=== PATIENT | male | born 1940 | race American Indian/Alaskan Native ===

== ENCOUNTER 2017-08-23 10:24 | Inpatient (IN) | payer MEDICARE, OTHER ==
[2017-08-23] MEDS ORDERED: Cefepime 1 GM in Sodium Chloride 0.9% 50 ML IVPB STA (10:57)
[2017-08-23] MEDS ORDERED: Vancomycin 1 GM 1 GM/250 ML BAG IV STA (10:57)
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
[2017-08-23 11:29] LABS: BASO % 0.6 % (0.0-2.0); EOS # 0.3 K/uL (0.0-0.7); EOS % 3.3 % (0.0-4.0); HEMATOCRIT 32.8 % (35.0-51.0); LYMPH % 12.7 % (20.0-40.0); MEAN CELL VOLUME 89.1 fL (80.0-94.0); MEAN CORPUSCULAR HEMOGLOBIN 29.3 pg (27.0-31.0); MEAN CORPUSCULAR HGB CONC 32.9 g/dL (33.0-37.0); MEAN PLATELET VOLUME 8.9 fL (7.2-11.7); MONO # 0.5 K/uL (0.0-0.8); MONO % 6.7 % (0.0-10.0); RED CELL DISTRIBUTION WIDTH 15.3 % (11.5-14.5); WHITE BLOOD COUNT 8.1 K/uL (4.8-10.8)
[2017-08-23 11:32] LABS: VENOUS BLOOD GAS BASE EXCESS 10.8 mmol/L (0.0-2.0); VENOUS BLOOD GAS PCO2 58 mmHg (40-60); VENOUS BLOOD PH 7.42 (7.32-7.43)
--- NOTE | 2017-08-23 12:19 | RAD ---
PROCEDURE: Left Foot Radiographs. HISTORY: LEFT HEEL WOUND, R/O GAS, OSTEO COMPARISON: None. FINDINGS: BONES: There is diffuse bone demineralization. There is no acute fracture or bone destruction. Bone alignment is normal. 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 SOFT TISSUES: There is severe soft tissue swelling in the heel with subcutaneous edema. No definite evidence of gas in the soft tissues. OTHER FINDINGS: None. IMPRESSION: No radiographic evidence for osteomyelitis. Soft tissue swelling in the heel with subcutaneous edema most compatible with cellulitis. No radiographic evidence for gas in the soft tissues.
[2017-08-23 12:22] LABS: POTASSIUM 3.9 mmol/L (3.6-5.2)
[2017-08-23 12:24] LABS: ALB/GLOB RATIO 0.8 (1.0-2.1); BILIRUBIN,TOTAL 0.7 mg/dL (0.2-1.3)
[2017-08-23 12:25] LABS: CALCIUM 8.3 mg/dl (8.6-10.4)
[2017-08-23 12:27] LABS: INR 1.2
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
[2017-08-23] MEDS ORDERED: Vancomycin 1 gm/NS 200 ml 1 GM/200 ML BAG IVPB ONE (14:00)
[2017-08-23] MEDS ORDERED: Vancomycin 1 gm/NS 200 ml 1 GM/200 ML BAG IVPB SCH (14:00)
[2017-08-23] MEDS: Piperacill/Tazo 2.25gm in Dex 2.25 GM/50 ML BAG IVPB SCH ×2 (15:20→20:32)
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
--- NOTE | 2017-08-23 20:12 | CP.PCM.CON ---
History of Present Illness - History of Present Illness History of Present Illness: 76 year old male seen for ulcer with suspected OM left heel .Pt presented to my office yesterday with deep heel ulcer left which appears to be chronic . Pt has long history of wounds with treatment by Dr Peterson Mas .Pt has right Leg amputation . Review of Systems - Constitutional Constitutional: As Per HPI - EENT Eyes: As Per HPI Nose/Mouth/Throat: As Per HPI - Cardiovascular Cardiovascular: As Per HPI - Respiratory Respiratory: As Per HPI - Gastrointestinal Gastrointestinal: As Per HPI - Genitourinary Genitourinary: As Per HPI - Musculoskeletal Musculoskeletal: As Per HPI Additional comments: rihght leg amputation - Integumentary Integumentary: As Per HPI - Neurological Neurological: As Per HPI, Abnormal Gait - Psychiatric Psychiatric: As Per HPI - Endocrine Endocrine: As Per HPI Past Patient History - Past Medical History & Family History Past Medical History?: Yes - Past Social History Smoking Status: Never Smoked - RENAL Hx Chronic Kidney Disease: Yes - ENDOCRINE/METABOLIC Hx Diabetes Mellitus Type 2: Yes - MUSCULOSKELETAL/RHEUMATOLOGICAL Hx Falls: No - PSYCHIATRIC Hx Substance Use: No - SURGICAL HISTORY Other/Comment: right above knee amputee - ANESTHESIA Hx Anesthesia: Yes Hx Anesthesia Reactions: No Meds Allergies/Adverse Reactions: Allergies Allergy/AdvReac Type Severity Reaction Status Date / Time No Known Allergies Allergy Verified 08/23/17 10:34 - Medications Medications: Current Medications Enoxaparin Sodium (Lovenox) 30 mg SC DAILY [facility] Ferrous Sulfate (Feosol) 325 mg PO DAILY [facility] Gabapentin (Neurontin) 300 mg PO TID [facility] Last Admin: 08/23/17 18:05 Dose: 300 mg Piperacillin Sod/Tazobactam Sod (Zosyn 2.25 Gm Iv Premix) 2.25 gm in 50 mls @ 100 mls/hr IVPB Q6H [facility] Last Admin: 08/23/17 15:20 Dose: 100 mls/hr Vancomycin/Sodium Chloride (Vancomycin 1 Gm/Ns 200 Ml) 1 gm in 200 mls @ 133.333 mls/hr IVPB MWF [facility] Stop: 08/31/17 09:01 Pantoprazole Sodium (Protonix Ec Tab) 40 mg PO DAILY [facility] Pneumococcal Polyvalent Vaccine (Pneumovax 23 Vaccine) 0.5 ml SC .ONCE ONE Stop: 08/26/17 10:01 Tramadol HCl (Ultram) 50 mg PO Q6 [facility] Last Admin: 08/23/17 18:04 Dose: 50 mg Physical Exam - Extremities Exam Additional comments: O/Deep heel ulcer left with cellulitis . Dp Pt pulses non palpable left . Results - Vital Signs Recent Vital Signs: Last Vital Signs Temp 97.5 F L 08/23/17 16:00 Pulse 85 08/23/17 16:00 Resp 20 08/23/17 16:00 BP 120/51 L 08/23/17 16:00 Pulse Ox 98 08/23/17 17:04 - Labs Result Diagrams: 08/23/17 11:20 08/23/17 12:05 Labs: Laboratory Results - last 24 hr 08/23/17 08/23/17 08/23/17 11:20 11:28 12:05 WBC 8.1 RBC 3.68 L Hgb 10.8 L Hct 32.8 L MCV 89.1 MCH 29.3 MCHC 32.9 L RDW 15.3 H Plt Count 226 MPV 8.9 Neut % (Auto) 76.7 H Lymph % (Auto) 12.7 L [place] % (Auto) 6.7 Eos % (Auto) 3.3 Baso % (Auto) 0.6 Neut # 6.2 Lymph # 1.0 [place] # 0.5 Eos # 0.3 Baso # 0.0 ESR Cancelled PT INR APTT pO2 19 L VBG pH 7.42 VBG pCO2 58 VBG HCO3 31.5 VBG Total CO2 39.4 H VBG O2 Sat (Calc) 29.5 L VBG Base Excess 10.8 H VBG Potassium 3.3 L Sodium 141.0 136 Chloride 106.0 96 L Glucose 121 H Lactate 1.2 Potassium 3.9 Carbon Dioxide 32 H Anion Gap 12 BUN 10 Creatinine 2.6 H Est GFR ( Amer) 29 Est GFR (Non-Af Amer) 24 Random Glucose 115 H Calcium 8.3 L Total Bilirubin 0.7 AST 23 ALT 23 Alkaline Phosphatase 99 Total Protein 8.0 Albumin 3.6 Globulin 4.4 H Albumin/Globulin Ratio 0.8 L Venous Blood Potassium 3.3 L 08/23/17 08/23/17 12:14 12:14 WBC RBC Hgb Hct MCV MCH MCHC RDW Plt Count MPV Neut % (Auto) Lymph % (Auto) [place] % (Auto) Eos % (Auto) Baso % (Auto) Neut # Lymph # [place] # Eos # Baso # ESR 110 H PT 13.6 H INR 1.2 APTT 27 pO2 VBG pH VBG pCO2 VBG HCO3 VBG Total CO2 VBG O2 Sat (Calc) VBG Base Excess VBG Potassium Sodium Chloride Glucose Lactate Potassium Carbon Dioxide Anion Gap BUN Creatinine Est GFR ( Amer) Est GFR (Non-Af Amer) Random Glucose Calcium Total Bilirubin AST ALT Alkaline Phosphatase Total Protein Albumin Globulin Albumin/Globulin Ratio Venous Blood Potassium Assessment & Plan - Assessment and Plan (Free Text) Assessment: A/Heel ulcer infected with cellulitis /R/O OM . Plan: P/Xrays /labs /chart reviewed .awaiting MRI report . Apply bacitracin dressing bid to heel . Arterial Doppler left . Dr Gonzales Consult appreciated.
[2017-08-24] MEDS: Piperacill/Tazo 2.25gm in Dex 2.25 GM/50 ML BAG IVPB SCH ×4 (01:24→20:30)
--- NOTE | 2017-08-24 09:14 | CP.PCM.PN ---
<Shawn Bedoya - Last Filed: 08/24/17 09:13> Subjective - Date & Time of Evaluation Date of Evaluation: 08/24/17 Time of Evaluation: 09:13 - Subjective Subjective: pt seen for deep infected ulcer left heel . Objective - Vital Signs/Intake and Output Vital Signs (last 24 hours): Temp Pulse Resp BP Pulse Ox 100.5 F H 108 H 20 94/49 L 96 08/24/17 07:38 08/24/17 07:38 08/24/17 07:38 08/24/17 07:38 08/24/17 07:38 Intake and Output: 08/24/17 08/24/17 06:59 18:59 Intake Total 500 Output Total 400 Balance 100 - Medications Medications: Current Medications Bacitracin (Bacitracin) 2 gm TOP BID [facility] Enoxaparin Sodium (Lovenox) 30 mg SC DAILY [facility] Ferrous Sulfate (Feosol) 325 mg PO DAILY [facility] Gabapentin (Neurontin) 300 mg PO TID [facility] Last Admin: 08/23/17 18:05 Dose: 300 mg Piperacillin Sod/Tazobactam Sod (Zosyn 2.25 Gm Iv Premix) 2.25 gm in 50 mls @ 100 mls/hr IVPB Q6H [facility] Last Admin: 08/24/17 01:24 Dose: 100 mls/hr Vancomycin/Sodium Chloride (Vancomycin 1 Gm/Ns 200 Ml) 1 gm in 200 mls @ 133.333 mls/hr IVPB MWF [facility] Stop: 08/31/17 09:01 Pantoprazole Sodium (Protonix Ec Tab) 40 mg PO DAILY [facility] Pneumococcal Polyvalent Vaccine (Pneumovax 23 Vaccine) 0.5 ml SC .ONCE ONE Stop: 08/26/17 10:01 Tramadol HCl (Ultram) 50 mg PO Q6 [facility] Last Admin: 08/24/17 05:50 Dose: 50 mg - Labs Labs: 08/23/17 11:20 08/23/17 12:05 PT 13.6 SECONDS (9.7-12.2) H 08/23/17 12:14 INR 1.2 08/23/17 12:14 APTT 27 SECONDS (21-34) 08/23/17 12:14 <Henny Lester - Last Filed: 08/24/17 11:17> Subjective - Subjective Subjective: 76 year old male seen at bedside with attending, Dr. Bedoya for ulcer with suspected OM left heel. .Pt has right Leg amputation. Patient admits to pain on the left foot. Denies n/v/f/c/sob/cp. Objective - Vital Signs/Intake and Output Vital Signs (last 24 hours): Temp Pulse Resp BP Pulse Ox 100.5 F H 108 H 20 94/49 L 96 08/24/17 10:08 08/24/17 07:38 08/24/17 07:38 08/24/17 07:38 08/24/17 07:38 Intake and Output: 08/24/17 08/24/17 06:59 18:59 Intake Total 500 Output Total 400 Balance 100 - Medications Medications: Current Medications Bacitracin (Bacitracin) 2 gm TOP BID [facility] Last Admin: 08/24/17 10:09 Dose: 1 applic Enoxaparin Sodium (Lovenox) 30 mg SC DAILY [facility] Last Admin: 08/24/17 10:08 Dose: 30 mg Ferrous Sulfate (Feosol) 325 mg PO DAILY [facility] Last Admin: 08/24/17 10:08 Dose: 325 mg Gabapentin (Neurontin) 300 mg PO TID [facility] Last Admin: 08/24/17 10:08 Dose: 300 mg Piperacillin Sod/Tazobactam Sod (Zosyn 2.25 Gm Iv Premix) 2.25 gm in 50 mls @ 100 mls/hr IVPB Q6H [facility] Last Admin: 08/24/17 10:07 Dose: 100 mls/hr Vancomycin/Sodium Chloride (Vancomycin 1 Gm/Ns 200 Ml) 1 gm in 200 mls @ 133.333 mls/hr IVPB MWF [facility] Stop: 08/31/17 09:01 Pantoprazole Sodium (Protonix Ec Tab) 40 mg PO DAILY [facility] Last Admin: 08/24/17 10:08 Dose: 40 mg Pneumococcal Polyvalent Vaccine (Pneumovax 23 Vaccine) 0.5 ml SC .ONCE ONE Stop: 08/26/17 10:01 Tramadol HCl (Ultram) 50 mg PO Q6 [facility] Last Admin: 08/24/17 05:50 Dose: 50 mg - Labs Labs: 08/23/17 11:20 08/23/17 12:05 PT 13.6 SECONDS (9.7-12.2) H 08/23/17 12:14 INR 1.2 08/23/17 12:14 APTT 27 SECONDS (21-34) 08/23/17 12:14 - Constitutional Appears: Non-toxic, No Acute Distress - Extremities Exam Additional comments: Left lower extremity focused exam: Vasc: DP and PT pulses non-palpable. TG wnl, CFT >3 sec to all digits neuro: grossly diminished derm: deep tissue injury noted to left heel measure approximately 4 cm by 4 cm with a granular base that is thin and directly over bone, no purulence, no drainage, no malodor, no ascending cellulitis or fluctuance ortho:pain on palpation to posterior heel - Neurological Exam Neurological Exam: Alert, Awake - Psychiatric Exam Psychiatric exam: Normal Affect, Normal Mood Assessment and Plan - Assessment and Plan (Free Text) Assessment: 76 year old male with left heel ulcer with cellulitis and possible OM Plan: patient examined and evaluated with attending, Dr. Bedoya labs, chart, vitals reivewed MRI read pending offloading boot ordered for LLE left heel dressed with xeroform, DSD arterila doppler left pending podiatry will cont to follow patient while in house
[2017-08-24] MEDS: Pantoprazole 40 mg EC Tab PO SCH (10:08)
[2017-08-24] MEDS: Enoxaparin 30 mg Syringe SC SCH (10:08)
[2017-08-24] MEDS: Bacitracin Ointment 30 GM TUBE TOP SCH (10:09)
[2017-08-24 11:41] LABS: BASO % 0.1 % (0.0-2.0); LYMPH # 0.1 K/uL (1.0-4.3); MONO # 0.5 K/uL (0.0-0.8)
[2017-08-24 11:52] LABS: EOS # 0.1 K/uL (0.0-0.7); LYMPH % 0.7 % (20.0-40.0); MEAN CELL VOLUME 89.8 fL (80.0-94.0); MEAN CORPUSCULAR HEMOGLOBIN 29.4 pg (27.0-31.0); MEAN CORPUSCULAR HGB CONC 32.8 g/dL (33.0-37.0); MEAN PLATELET VOLUME 9.2 fL (7.2-11.7); MONO % 3.1 % (0.0-10.0); NRBC % 0.2 % (0.0-2.0); PLATELET COUNT 227 K/uL (130-400); RED CELL DISTRIBUTION WIDTH 15.6 % (11.5-14.5)
[2017-08-24 11:53] LABS: WHITE BLOOD COUNT 14.7 K/uL (4.8-10.8)
[2017-08-24 12:06] LABS: POTASSIUM 3.6 mmol/L (3.6-5.2)
[2017-08-24 12:08] LABS: ALB/GLOB RATIO 0.8 (1.0-2.1); BILIRUBIN,TOTAL 0.9 mg/dL (0.2-1.3); TOTAL PROTEIN 6.8 g/dL (6.3-8.3)
[2017-08-24 12:09] LABS: CALCIUM 7.6 mg/dl (8.6-10.4); MAGNESIUM 1.9 mg/dL (1.6-2.3); PHOSPHOROUS 3.5 mg/dL (2.5-4.5)
[2017-08-24 12:25] LABS: NEUTROPHIL 91 % (50-75); REACTIVE LYMPHOCYTES 1 % (0-0); TOTAL CELLS COUNTED 100
[2017-08-24 12:26] LABS: LARGE PLATELETS PRESENT
[2017-08-24] MEDS ORDERED: Vancomycin 1 gm/NS 200 ml 1 GM/200 ML BAG IVPB SCH (15:00)
[2017-08-25] MEDS: Piperacill/Tazo 2.25gm in Dex 2.25 GM/50 ML BAG IVPB SCH ×3 (02:40→13:56)
[2017-08-25] MEDS: Enoxaparin 30 mg Syringe SC SCH (09:35)
[2017-08-25] MEDS: Pantoprazole 40 mg EC Tab PO SCH (09:35)
--- NOTE | 2017-08-25 10:00 | CP.PCM.PN ---
Subjective - Date & Time of Evaluation Date of Evaluation: 08/25/17 Time of Evaluation: 10:00 - Subjective Subjective: 76 year old male seen at bedside for ulcer with suspected OM left heel. Pt has right Leg amputation. Patient admits to pain on the left foot. Denies n/v/f/c/ sob/cp. Objective - Vital Signs/Intake and Output Vital Signs (last 24 hours): Temp Pulse Resp BP Pulse Ox 97.6 F 97 H 20 100/49 L 99 08/25/17 08:18 08/25/17 08:18 08/25/17 08:18 08/25/17 08:18 08/25/17 08:18 Intake and Output: 08/25/17 08/25/17 06:59 18:59 Intake Total 250 Output Total 400 Balance -150 - Medications Medications: Current Medications Bacitracin (Bacitracin) [address] [facility] Last Admin: 08/24/17 10:09 Dose: 1 applic Enoxaparin Sodium (Lovenox) [address] [facility] Last Admin: 08/25/17 09:35 Dose: 30 mg Ferrous Sulfate (Feosol) [address] [facility] Last Admin: 08/25/17 09:35 Dose: 325 mg Gabapentin (Neurontin) [address] [facility] Last Admin: 08/25/17 09:35 Dose: 300 mg Piperacillin Sod/Tazobactam Sod (Zosyn 2.25 Gm Iv Premix) 2.25 gm in 50 mls @ 100 mls/hr IVPB Q6H [facility] Last Admin: 08/25/17 09:35 Dose: 100 mls/hr Vancomycin/Sodium Chloride (Vancomycin 1 Gm/Ns 200 Ml) 1 gm in 200 mls @ 133.333 mls/hr IVPB MWF [facility] Stop: 08/31/17 09:01 Pantoprazole Sodium (Protonix Ec Tab) [address] [facility] Last Admin: 08/25/17 09:35 Dose: 40 mg Pneumococcal Polyvalent Vaccine (Pneumovax 23 Vaccine) 0.5 ml SC .ONCE ONE Stop: 08/26/17 10:01 Tramadol HCl (Ultram) [address] [facility] Last Admin: 08/25/17 05:51 Dose: 50 mg - Labs Labs: 08/24/17 11:29 08/24/17 11:29 PT 13.6 SECONDS (9.7-12.2) H 08/23/17 12:14 INR 1.2 08/23/17 12:14 APTT 27 SECONDS (21-34) 08/23/17 12:14 - Constitutional Appears: Non-toxic, No Acute Distress - Extremities Exam Additional comments: Left lower extremity focused exam: Vasc: DP and PT pulses non-palpable. TG wnl, CFT >3 sec to all digits neuro: grossly diminished derm: deep tissue injury noted to left heel measure approximately 4 cm by 4 cm with a granular base that is thin and directly over bone, no purulence, no drainage, no malodor, no ascending cellulitis or fluctuance ortho:pain on palpation to posterior heel - Neurological Exam Neurological Exam: Alert, Awake - Psychiatric Exam Psychiatric exam: Normal Affect, Normal Mood Assessment and Plan - Assessment and Plan (Free Text) Assessment: 76 year old male with left heel ulcer with cellulitis and possible OM Plan: patient examined and evaluated discussed with attending, Dr. Bedoya labs, chart, vitals reviewed MRI- read pending patient needs offloading boot to LLE left heel dressed with bacitracin, xeroform, DSD arterila doppler left pending podiatry will cont to follow patient while in house
[2017-08-25] MEDS: Bacitracin Ointment 30 GM TUBE TOP SCH ×3 (10:55→18:50)
--- NOTE | 2017-08-25 14:23 | MRI ---
PROCEDURE: MRI of the left proximal foot without contrast HISTORY: r/o osteo; left foot. History of diabetes, left foot pain. COMPARISON: Comparison is made to the previous x-ray of the left foot dated 08/23/2017 TECHNIQUE: Axial coronal and sagittal MRI images of the proximal left foot were obtained without IV contrast administration. FINDINGS: There is focal bone marrow edema noted at the lateral process of the posterior calcaneal tuberosity. There is no definite evidence of significant cortical destruction or erosion. There is no evidence of fluid collection adjacent to this abnormal bone marrow focus. The differential diagnosis includes an early osteomyelitis versus reactive marrow edema versus bone contusion from recent trauma. Otherwise no evidence of bone marrow edema or cortical erosion in the visualized portion of the left ankle and proximal left foot bones. There is subcutaneous soft tissue thinning and possible defect in the skin noted at the lateral aspect of the left heel. No evidence of subcutaneous fluid collection. Diffuse mild edema noted also in the soft tissue around the left ankle. There is [id number] diffuse increase signal noted in the muscles at the left ankle and proximal left foot suggestive of myositis. There is hypointense to isointense T1 and hypointense T2 signal round soft tissue structure extending from the anterior lateral aspect of the tibial talar joint of uncertain etiology. IMPRESSION: Focal bone marrow edema without evidence of cortical erosion or destruction noted at the lateral process of the posterior calcaneal tuberosity. Differential considerations include an early osteomyelitis versus reactive bone marrow edema versus bone contusion. If clinically warranted and if the patient's symptoms persist follow-up reassessment may be obtained. Moderate osteoarthritic changes at the left ankle and left talar joints. Soft tissue edema and [id number] myositis without evidence of discrete fluid collection. Preliminary report was submitted by virtual Radiology.
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
--- NOTE | 2017-08-25 20:50 | CP.PCM.CON ---
History of Present Illness - History of Present Illness History of Present Illness: renal consult note 66 yo male with past medical hx of DM, esrd on hd mwf, is admitted with left foot pain for 1 week. he is currently being evlauted for foot infection ID is on board along with podiatry . PMH: DM, HTN, ESRD on hd MWF, diabetic foot ulcer PSH: right leg amputation PE: vitals stable ao times 3 nad heent normal op moist no resp distress s1s2 present abd soft skin normal A&P: esrd/htn/dm/left foot ulcer/osteo? hd mwf continue per schedule lytes stable anemia stable, epo as needed with hd bp continue current meds phos controlled ID on board for osteo, abx per them dose for esrd Review of Systems - Review of Systems All systems: reviewed and no additional remarkable complaints except Past Patient History - Past Medical History & Family History Past Medical History?: Yes - Past Social History Smoking Status: Never Smoked - RENAL Hx Chronic Kidney Disease: Yes - ENDOCRINE/METABOLIC Hx Diabetes Mellitus Type 2: Yes - MUSCULOSKELETAL/RHEUMATOLOGICAL Hx Falls: No - PSYCHIATRIC Hx Substance Use: No - SURGICAL HISTORY Other/Comment: right above knee amputee - ANESTHESIA Hx Anesthesia: Yes Hx Anesthesia Reactions: No Meds Allergies/Adverse Reactions: Allergies Allergy/AdvReac Type Severity Reaction Status Date / Time No Known Allergies Allergy Verified 08/23/17 10:34 - Medications Medications: Current Medications Bacitracin (Bacitracin) 2 gm TOP BID [facility] Last Admin: 08/25/17 17:15 Dose: 1 applic Enoxaparin Sodium (Lovenox) 30 mg SC DAILY [facility] Last Admin: 08/25/17 09:35 Dose: 30 mg Ferrous Sulfate (Feosol) 325 mg PO DAILY [facility] Last Admin: 08/25/17 09:35 Dose: 325 mg Gabapentin (Neurontin) 300 mg PO TID [facility] Last Admin: 08/25/17 17:17 Dose: 300 mg Vancomycin/Sodium Chloride (Vancomycin 1 Gm/Ns 200 Ml) 1 gm in 200 mls @ 133.333 mls/hr IVPB F [facility] Stop: 08/31/17 09:01 Gentamicin Sulfate 80 mg/ (Sodium Chloride) 102 mls @ 100 mls/hr IVPB [facility] [place] Pantoprazole Sodium (Protonix Ec Tab) 40 mg PO DAILY [facility] Last Admin: 08/25/17 09:35 Dose: 40 mg Pneumococcal Polyvalent Vaccine (Pneumovax 23 Vaccine) 0.5 ml SC .ONCE ONE Stop: 08/26/17 10:01 Tramadol HCl (Ultram) 50 mg PO Q6 [facility] Last Admin: 08/25/17 17:18 Dose: 50 mg Results - Vital Signs Recent Vital Signs: Last Vital Signs Temp 97.6 F 08/25/17 15:00 Pulse 93 H 08/25/17 15:00 Resp 20 08/25/17 15:00 BP 100/65 08/25/17 15:00 Pulse Ox 96 08/25/17 15:00 - Labs Result Diagrams: 08/24/17 11:29 08/24/17 11:29
[2017-08-26] MEDS ORDERED: Pneumococcal 23-Valent Vaccine SC ONE (10:00)
[2017-08-26] MEDS: Bacitracin Ointment 30 GM TUBE TOP SCH ×2 (11:00→18:08)
[2017-08-26] MEDS: Enoxaparin 30 mg Syringe SC SCH (11:00)
[2017-08-26] MEDS: Pantoprazole 40 mg EC Tab PO SCH (11:00)
--- NOTE | 2017-08-26 11:30 | CP.PCM.PN ---
Subjective - Date & Time of Evaluation Date of Evaluation: 08/26/17 Time of Evaluation: 11:10 - Subjective Subjective: Podiatry Progress Note- Dr. Bedoya 76 yo male patient seen at bedside today for f/u of left heel ulceration. Pt has a right leg amputation. Pt seen resting comfortably in bed at time of visit , NAD, however nursing does report today that patient is having some confusion to time and place. Pt does complain of some tenderness to left heel, denies f/n/ v/c/sob/cp/weakness or dizziness at this time. Objective - Vital Signs/Intake and Output Vital Signs (last 24 hours): Temp Pulse Resp BP Pulse Ox 98.5 F 89 20 110/50 L 96 08/26/17 07:41 08/26/17 07:41 08/26/17 07:41 08/26/17 07:41 08/26/17 07:41 Intake and Output: 08/26/17 08/26/17 06:59 18:59 Intake Total 350 Output Total 250 Balance 100 - Medications Medications: Current Medications Bacitracin (Bacitracin) 2 gm TOP BID [facility] Last Admin: 08/25/17 18:50 Dose: 1 applic Enoxaparin Sodium (Lovenox) 30 mg SC DAILY [facility] Last Admin: 08/25/17 09:35 Dose: 30 mg Epoetin Shane (Procrit) 4,000 unit IV [facility] [place] Ferrous Sulfate (Feosol) 325 mg PO DAILY [facility] Last Admin: 08/25/17 09:35 Dose: 325 mg Gabapentin (Neurontin) 300 mg PO BID [facility] Vancomycin/Sodium Chloride (Vancomycin 1 Gm/Ns 200 Ml) 1 gm in 200 mls @ 133.333 mls/hr IVPB [facility] [place] Stop: 08/31/17 09:01 Gentamicin Sulfate 80 mg/ (Sodium Chloride) 102 mls @ 100 mls/hr IVPB [facility] [place] Pantoprazole Sodium (Protonix Ec Tab) 40 mg PO DAILY [facility] Last Admin: 08/25/17 09:35 Dose: 40 mg Tramadol HCl (Ultram) 50 mg PO Q6 [facility] Last Admin: 08/26/17 06:49 Dose: Not Given Vitamin B Complex/Vit C/Folic Acid (Nephro-[place]) 1 tab PO 0800 [facility] - Labs Labs: 08/24/17 11:29 08/24/17 11:29 PT 13.6 SECONDS (9.7-12.2) H 08/23/17 12:14 INR 1.2 08/23/17 12:14 APTT 27 SECONDS (21-34) 08/23/17 12:14 - Constitutional Appears: Non-toxic, No Acute Distress - Extremities Exam Extremities Exam: absent: Calf Tenderness Additional comments: Left lower extremity focused exam: Vasc: DP and PT pulses non-palpable. TG wnl, CFT >3 sec to all digits neuro: grossly diminished derm: deep tissue injury noted to left heel measure approximately 4 cm by 4 cm with a granular base that is thin and directly over bone, no purulence, no drainage, no malodor, no ascending cellulitis or fluctuance ortho:pain on palpation to posterior heel - Neurological Exam Neurological Exam: Awake - Psychiatric Exam Psychiatric exam: Normal Affect, Normal Mood Assessment and Plan - Assessment and Plan (Free Text) Assessment: 76 year old male with left heel ulceration 2/2 pressure Plan: Pt S&E at bedside Plan discussed with attending Dr. Bedoya Chart, labs and vitals reviewed: afebrile, WBC wnl today LLE MRI: no definitive evidence cortical erosion or destruction of bone. Differentials include early OM vs. reactive bone marrow edema vs. bone contusion Dressing changed with bactroban, xeroform, DSD, offloading heel boot applied, advised patient to wear at all times while in bed Stable per podiatry Will follow
[2017-08-26 14:36] LABS: BASO % 0.2 % (0.0-2.0); EOS # 0.5 K/uL (0.0-0.7); EOS % 5.3 % (0.0-4.0); HEMATOCRIT 29.4 % (35.0-51.0); LYMPH # 0.3 K/uL (1.0-4.3); LYMPH % 3.3 % (20.0-40.0); MEAN CELL VOLUME 88.9 fL (80.0-94.0); MEAN CORPUSCULAR HEMOGLOBIN 29.3 pg (27.0-31.0); MEAN PLATELET VOLUME 9.1 fL (7.2-11.7); MONO # 0.3 K/uL (0.0-0.8); MONO % 2.8 % (0.0-10.0); PLATELET COUNT 188 K/uL (130-400); RED CELL DISTRIBUTION WIDTH 16.2 % (11.5-14.5); WHITE BLOOD COUNT 9.3 K/uL (4.8-10.8)
[2017-08-26 14:44] LABS: POTASSIUM 3.6 mmol/L (3.6-5.2)
[2017-08-26 14:46] LABS: ALB/GLOB RATIO 1.1 (1.0-2.1); TOTAL PROTEIN 5.9 g/dL (6.3-8.3)
[2017-08-26 14:47] LABS: CALCIUM 7.6 mg/dl (8.6-10.4)
[2017-08-26 14:59] LABS: EOSINOPHIL 4 % (0-4); NEUTROPHIL 87 % (50-75); TOTAL CELLS COUNTED 100
[2017-08-26] MEDS: Vancomycin 1 gm/NS 200 ml 1 GM/200 ML BAG IVPB SCH (15:15)
--- NOTE | 2017-08-26 15:30 | CP.PCM.PN ---
Subjective - Date & Time of Evaluation Date of Evaluation: 08/26/17 Time of Evaluation: 15:26 - Subjective Subjective: Follow up Nephrology Consultation Note Assessment: Stable Diabetic foot infection with cellulitis Diabetic chronic Kidney Disease (E11.22) Hypertensive Chronic Kidney Disease (I12.0) End stage renal disease (N18.6) dependence on hemodialysis (Z99.2) (MWF) via AVF Anemia (D64.9), Hyperphosphatemia (E83.39), Secondary Hyperparathyroidism (E21.1 ), HTN (I12.0) Plan: Will plan for HD today as ordered. Continue with Nephrovite 1 tab/day. PRBC as needed for anemia. On JL as epogen with HD Phos controlled BP control with meds as ordered. Patient not on RAAS marques as BP on low side Glycemic control, Dialysis consistent diet Further work up/management as per primary team Dose meds/antibiotics for ESRD status. Avoid fleets enema/magnesium based laxatives. Thanks for allowing me to participate in care of your patient. Will follow patient with you. Please call if any Qs Dr Migue Garnica Office: [phone] Subjective: Noted events overnight. Patients feels okay. Denies chest pain, palpitation, shortness of breath, leg swelling. he is here with left leg infection Physical Examination: seen during HD General Appearance: Comfortable, in no acute respiratory distress, co- operative. Vitals reviewed and noted as below Lungs: Normal respiratory rate/effort. Breath sounds bilateral equal and clear Heart: Normal rate. s1s2 normal. No rub or gallop. Extremities: no edema. s/p Rt AKA. left leg in dressing. hyperpigmented changes + Neurological: Patient is alert, awake and oriented to person, place and time. No focal deficit. Strength bilateral appropriate and equal Skin: Warm and dry. Normal turgor. No rash. Palpitation: Normal elasticity for age Abdomen: Abdomen is soft. Bowel sounds +. There is no abdominal tenderness, no guarding/rigidity or organomegaly : kidney or bladder not palpable Access: AVF Labs/imaging reviewed. Past medical history, past surgical history, family history, social history, allergy reviewed Objective - Vital Signs/Intake and Output Vital Signs (last 24 hours): Temp Pulse Resp BP Pulse Ox 98.5 F 89 20 110/50 L 96 08/26/17 07:41 08/26/17 07:41 08/26/17 07:41 08/26/17 07:41 08/26/17 07:41 Intake and Output: 08/26/17 08/26/17 06:59 18:59 Intake Total 350 Output Total 250 Balance 100 - Medications Medications: Current Medications Bacitracin (Bacitracin) 2 gm TOP BID [facility] Last Admin: 08/26/17 11:00 Dose: Not Given Enoxaparin Sodium (Lovenox) 30 mg SC DAILY [facility] Last Admin: 08/26/17 11:00 Dose: 30 mg Epoetin Shane (Procrit) 4,[address] [facility] [place] Ferrous Sulfate (Feosol) 325 mg PO DAILY [facility] Last Admin: 08/26/17 11:00 Dose: 325 mg Gabapentin (Neurontin) 300 mg PO BID [facility] Vancomycin/Sodium Chloride (Vancomycin 1 Gm/Ns 200 Ml) 1 gm in 200 mls @ 133.333 mls/hr IVPB [facility] Stop: 08/31/17 09:01 Gentamicin Sulfate 80 mg/ (Sodium Chloride) 102 mls @ 100 mls/hr IVPB [facility] Pantoprazole Sodium (Protonix Ec Tab) 40 mg PO DAILY [facility] Last Admin: 08/26/17 11:00 Dose: 40 mg Tramadol HCl (Ultram) 50 mg PO Q6 [facility] Last Admin: 08/26/17 12:54 Dose: 50 mg Vitamin B Complex/Vit C/Folic Acid (Nephro-[place]) 1 tab PO 0800 [facility] - Labs Labs: 08/26/17 14:31 08/26/17 14:31 PT 13.6 SECONDS (9.7-12.2) H 08/23/17 12:14 INR 1.2 08/23/17 12:14 APTT 27 SECONDS (21-34) 08/23/17 12:14
--- NOTE | 2017-08-26 16:29 | CP.PCM.PN ---
Subjective - Date & Time of Evaluation Date of Evaluation: 08/26/17 Time of Evaluation: 16:30 - Subjective Subjective: Progress note. Attending: Dr. White Pt seen and examined at bedside. No acute distress. No events overnight. No fevers, chills, vomiting, diarrhea. Awaiting MRI read. Objective - Vital Signs/Intake and Output Vital Signs (last 24 hours): Temp Pulse Resp BP Pulse Ox 97.8 F 95 H 16 100/45 L 96 08/26/17 13:30 08/26/17 15:33 08/26/17 15:33 08/26/17 15:33 08/26/17 15:33 Intake and Output: 08/26/17 08/26/17 06:59 18:59 Intake Total 350 300 Output Total 250 Balance 100 300 - Medications Medications: Current Medications Bacitracin (Bacitracin) 2 gm TOP BID [facility] Last Admin: 08/26/17 11:00 Dose: Not Given Enoxaparin Sodium (Lovenox) 30 mg SC DAILY [facility] Last Admin: 08/26/17 11:00 Dose: 30 mg Epoetin Shane (Procrit) 4,[address] [facility] [place] [place] Ferrous Sulfate (Feosol) 325 mg PO DAILY [facility] Last Admin: 08/26/17 11:00 Dose: 325 mg Gabapentin (Neurontin) 300 mg PO BID [facility] Vancomycin/Sodium Chloride (Vancomycin 1 Gm/Ns 200 Ml) 1 gm in 200 mls @ 133.333 mls/hr IVPB [facility] Stop: 08/31/17 09:01 Last Admin: 08/26/17 15:15 Dose: 133.333 mls/hr Gentamicin Sulfate 80 mg/ (Sodium Chloride) 102 mls @ 100 mls/hr IVPB [facility] Last Admin: 08/26/17 16:10 Dose: 100 mls/hr Pantoprazole Sodium (Protonix Ec Tab) 40 mg PO DAILY [facility] Last Admin: 08/26/17 11:00 Dose: 40 mg Tramadol HCl (Ultram) 50 mg PO Q6 [facility] Last Admin: 08/26/17 12:54 Dose: 50 mg Vitamin B Complex/Vit C/Folic Acid (Nephro-Venice) 1 tab PO 0800 [facility] - Labs Labs: 08/26/17 14:31 08/26/17 14:31 PT 13.6 SECONDS (9.7-12.2) H 08/23/17 12:14 INR 1.2 08/23/17 12:14 APTT 27 SECONDS (21-34) 08/23/17 12:14 - Constitutional Appears: Non-toxic, No Acute Distress, Chronically Ill - Head Exam Head Exam: ATRAUMATIC, NORMAL INSPECTION, NORMOCEPHALIC - Eye Exam Eye Exam: EOMI - ENT Exam ENT Exam: Mucous Membranes Moist - Neck Exam Neck Exam: Full ROM, Normal Inspection - Respiratory Exam Respiratory Exam: NORMAL BREATHING PATTERN. absent: Respiratory Distress - Cardiovascular Exam Cardiovascular Exam: +S1, +S2 - GI/Abdominal Exam GI & Abdominal Exam: Soft, Normal Bowel Sounds. absent: Tenderness - Extremities Exam Extremities Exam: absent: Full ROM, Normal Inspection Additional comments: bandage to left leg clean dry intact - Neurological Exam Neurological Exam: Alert, Awake, Oriented x3 - Psychiatric Exam Psychiatric exam: Normal Affect, Normal Mood - Skin Skin Exam: Dry, Intact, Normal Color, Warm Assessment and Plan - Assessment and Plan (Free Text) Assessment: This is a 76 yo male with past medical hx of DM, CKD, diabetic foot issues admitted for left heel pain and r/o osteo 1. R/O osteomyelitis -will start IV vanco (08/23/2017) -will start IV zosyn, renally dosed; switched to 80 mg IV gentamicin (start date 08/26) -wound care consult -PT evaluation -blood cultures negative -wound culture shows Serratia M. -ESR elevated at 110 -CRP pending -foot x ray does not definitive show osteomyelitis but does have diffuse soft tissue swelling -MRI will be ordered of left foot, read is pending -tramadol PRN for pain 2. CKD -will consult nephrology. Dr. Smith. recs appreciated -control blood pressure -avoid nephrotoxic agents 3. Hx of DM -ISS -gabapentin 300 mg PO TID 4. GI/DVT ppx -protonix -lovenox [address] White
[2017-08-26] MEDS: EPOETIN ALFA 4,000 UNIT/ML ML Dialysis IV SCH (16:58)
[2017-08-27 08:23] LABS: BASO % 0.2 % (0.0-2.0); EOS # 0.5 K/uL (0.0-0.7); HEMATOCRIT 28.6 % (35.0-51.0); LYMPH # 0.4 K/uL (1.0-4.3); LYMPH % 6.9 % (20.0-40.0); MEAN CELL VOLUME 89.1 fL (80.0-94.0); MEAN CORPUSCULAR HEMOGLOBIN 29.6 pg (27.0-31.0); MEAN CORPUSCULAR HGB CONC 33.2 g/dL (33.0-37.0); MEAN PLATELET VOLUME 9.3 fL (7.2-11.7); MONO # 0.3 K/uL (0.0-0.8); MONO % 4.7 % (0.0-10.0); NRBC % 0.2 % (0.0-2.0); PLATELET COUNT 197 K/uL (130-400); RED CELL DISTRIBUTION WIDTH 16.2 % (11.5-14.5); WHITE BLOOD COUNT 6.4 K/uL (4.8-10.8)
[2017-08-27 09:01] LABS: POTASSIUM 3.5 mmol/L (3.6-5.2)
[2017-08-27 09:03] LABS: PHOSPHOROUS 3.2 mg/dL (2.5-4.5); TOTAL PROTEIN 5.9 g/dL (6.3-8.3)
[2017-08-27 09:04] LABS: CALCIUM 7.7 mg/dl (8.6-10.4); MAGNESIUM 1.9 mg/dL (1.6-2.3)
[2017-08-27] MEDS: Pantoprazole 40 mg EC Tab PO SCH (09:27)
[2017-08-27] MEDS: Enoxaparin 30 mg Syringe SC SCH (09:28)
[2017-08-27] MEDS: Multivitamin Vitamin B Complex (Nephro-Vite) Tab PO SCH (09:28)
[2017-08-27 09:45] LABS: EOSINOPHIL 6 % (0-4); NEUTROPHIL 86 % (50-75); TOTAL CELLS COUNTED 100
[2017-08-27 09:46] LABS: LARGE PLATELETS PRESENT
[2017-08-27] MEDS: Bacitracin Ointment 30 GM TUBE TOP SCH ×2 (10:00→18:05)
--- NOTE | 2017-08-27 10:11 | CP.PCM.PN ---
Subjective - Date & Time of Evaluation Date of Evaluation: 08/27/17 Time of Evaluation: 10:05 - Subjective Subjective: Medicine Progress Note- Dr White's service Patient seen and examined. Patient states that he feels well and denies pain in his left foot. Patient does not follow with vascular surgeon as outpatient. Patient had hemodialysis yesterday. He is eating breakfast this morning and says he has a good appetite. No acute events overnight. Denies chest pain, shortness of breath and fever. Objective - Vital Signs/Intake and Output Vital Signs (last 24 hours): Temp Pulse Resp BP Pulse Ox 97.8 F 87 20 113/59 L 95 08/27/17 07:00 08/27/17 07:00 08/27/17 07:00 08/27/17 07:00 08/27/17 07:00 Intake and Output: 08/27/17 08/27/17 06:59 18:59 Intake Total 400 Balance 400 - Medications Medications: Current Medications Bacitracin (Bacitracin) 2 gm TOP BID [facility] Last Admin: 08/26/17 18:08 Dose: 1 applic Enoxaparin Sodium (Lovenox) 30 mg SC DAILY [facility] Last Admin: 08/27/17 09:28 Dose: 30 mg Epoetin Shane (Procrit) 4,000 unit IV [facility] [place] Last Admin: 08/26/17 16:58 Dose: 4,000 unit Ferrous Sulfate (Feosol) 325 mg PO DAILY [facility] Last Admin: 08/27/17 09:27 Dose: 325 mg Gabapentin (Neurontin) 300 mg PO BID [facility] Last Admin: 08/27/17 09:27 Dose: 300 mg Vancomycin/Sodium Chloride (Vancomycin 1 Gm/Ns 200 Ml) 1 gm in 200 mls @ 133.333 mls/hr IVPB [facility] Stop: 08/31/17 09:01 Last Admin: 08/26/17 15:15 Dose: 133.333 mls/hr Gentamicin Sulfate 80 mg/ (Sodium Chloride) 102 mls @ 100 mls/hr IVPB [facility] [place] Last Admin: 08/26/17 16:10 Dose: 100 mls/hr Pantoprazole Sodium (Protonix Ec Tab) 40 mg PO DAILY [facility] Last Admin: 08/27/17 09:27 Dose: 40 mg Potassium Chloride (K-Dur 20 Meq Er Tab) 20 meq PO ONCE ONE Stop: 08/28/17 10:05 Tramadol HCl (Ultram) 50 mg PO Q6 [facility] Last Admin: 08/27/17 06:15 Dose: Not Given Vitamin B Complex/Vit C/Folic Acid (Nephro-Venice) 1 tab PO 0800 [facility] Last Admin: 08/27/17 09:28 Dose: 1 tab - Labs Labs: 08/27/17 08:13 08/27/17 08:13 PT 13.6 SECONDS (9.7-12.2) H 08/23/17 12:14 INR 1.2 08/23/17 12:14 APTT 27 SECONDS (21-34) 08/23/17 12:14 - Constitutional Appears: Non-toxic, No Acute Distress - Head Exam Head Exam: ATRAUMATIC, NORMOCEPHALIC - Eye Exam Eye Exam: EOMI, Normal appearance - ENT Exam ENT Exam: Mucous Membranes Moist - Respiratory Exam Respiratory Exam: Clear to Ausculation Bilateral, NORMAL BREATHING PATTERN. absent: Accessory Muscle Use, Rhonchi, Wheezes, Respiratory Distress - Cardiovascular Exam Cardiovascular Exam: REGULAR RHYTHM, +S1, +S2, Murmur (systolic ). absent: Irregular Rhythm - GI/Abdominal Exam GI & Abdominal Exam: Soft, Normal Bowel Sounds. absent: Firm, Guarding, Rigid, Tenderness - Extremities Exam Extremities Exam: absent: Normal Inspection, Pedal Edema Additional comments: Right AKA amputation Left foot wrapped in dressing, dry, skin with chronic venous stasis changes, pulses not palpable - Neurological Exam Neurological Exam: Alert, Awake, CN II-XII Intact, Oriented x3 - Psychiatric Exam Psychiatric exam: Normal Affect, Normal Mood - Skin Skin Exam: Dry, Warm Assessment and Plan - Assessment and Plan (Free Text) Assessment: Left foot ulcer -Rule out osteomyelitis -Foot x ray does not definitive show osteomyelitis but does have diffuse soft tissue swelling -MRI foot shows possible early OM vs bone contusion -f/u bone scan for OM -[employer] Dr Bedoya consulted, help appreciated -ID Dr Gonzales consulted, help appreciated -IV vanco (08/23/2017) -IV zosyn, renally dosed; switched to 80 mg IV gentamicin (start date 08/26) -wound care consult -PT evaluation -blood cultures negative -wound culture shows Serratia M. -ESR elevated at 110 -CRP >15 -tramadol PRN for pain PAD -Consult Dr Duval, help appreciated ESRD on HD -will consult nephrology. Dr. Smith. recs appreciated -Continue HD MWF -blood pressure well controlled -avoid nephrotoxic agents Hx of DM -ISS -gabapentin 300 mg PO TID -Accuchecks GI/DVT ppx -protonix -lovenox [address] White
--- NOTE | 2017-08-27 11:20 | CP.PCM.PN ---
Subjective - Date & Time of Evaluation Date of Evaluation: 08/27/17 Time of Evaluation: 10:40 - Subjective Subjective: Podiatry Progress Note- Dr. Bedoya 76 yo male patient seen at bedside today for f/u of left heel ulceration. Pt is seen resting comfortably in bed at time of visit. Denies any problems overnight , does complain of some slight pain to the left heel wound but only when touched , is seen wearing offloading boot as directed. Denies f/n/v/c/sob/cp/weakness or dizziness at this time. Offers no other complaints today. Objective - Vital Signs/Intake and Output Vital Signs (last 24 hours): Temp Pulse Resp BP Pulse Ox 97.8 F 87 20 113/59 L 95 08/27/17 07:00 08/27/17 07:00 08/27/17 07:00 08/27/17 07:00 08/27/17 07:00 Intake and Output: 08/27/17 08/27/17 06:59 18:59 Intake Total 400 Balance 400 - Medications Medications: Current Medications Bacitracin (Bacitracin) 2 gm TOP BID [facility] Last Admin: 08/26/17 18:08 Dose: 1 applic Enoxaparin Sodium (Lovenox) 30 mg SC DAILY [facility] Last Admin: 08/27/17 09:28 Dose: 30 mg Epoetin Shane (Procrit) 4,000 unit IV [facility] Last Admin: 08/26/17 16:58 Dose: 4,000 unit Ferrous Sulfate (Feosol) 325 mg PO DAILY [facility] Last Admin: 08/27/17 09:27 Dose: 325 mg Gabapentin (Neurontin) 300 mg PO BID [facility] Last Admin: 08/27/17 09:27 Dose: 300 mg Vancomycin/Sodium Chloride (Vancomycin 1 Gm/Ns 200 Ml) 1 gm in 200 mls @ 133.333 mls/hr IVPB MWF [facility] Stop: 08/31/17 09:01 Last Admin: 08/26/17 15:15 Dose: 133.333 mls/hr Gentamicin Sulfate 80 mg/ (Sodium Chloride) 102 mls @ 100 mls/hr IVPB [facility] Last Admin: 08/26/17 16:10 Dose: 100 mls/hr Pantoprazole Sodium (Protonix Ec Tab) 40 mg PO DAILY [facility] Last Admin: 08/27/17 09:27 Dose: 40 mg Potassium Chloride (K-Dur 20 Meq Er Tab) 20 meq PO ONCE ONE Stop: 08/28/17 10:05 Tramadol HCl (Ultram) 50 mg PO Q6 [facility] Last Admin: 08/27/17 06:15 Dose: Not Given Vitamin B Complex/Vit C/Folic Acid (Nephro-Venice) 1 tab PO 0800 [facility] Last Admin: 08/27/17 09:28 Dose: 1 tab - Labs Labs: 08/27/17 08:13 08/27/17 08:13 PT 13.6 SECONDS (9.7-12.2) H 08/23/17 12:14 INR 1.2 08/23/17 12:14 APTT 27 SECONDS (21-34) 08/23/17 12:14 - Constitutional Appears: Non-toxic, No Acute Distress - Extremities Exam Extremities Exam: absent: Calf Tenderness Additional comments: Left lower extremity focused exam: Vasc: DP and PT pulses non-palpable. TG wnl, CFT >3 sec to all digits, no pedal edema neuro: grossly diminished derm: superficial ulceration noted to left heel measure approximately 4 cm by 4 cm with a granular base that is thin and directly over bone, no purulence, no drainage, no malodor, no ascending cellulitis or fluctuance ortho: + POP on palpation to posterior heel - Neurological Exam Neurological Exam: Alert, Awake - Psychiatric Exam Psychiatric exam: Normal Affect, Normal Mood Assessment and Plan - Assessment and Plan (Free Text) Assessment: 76 year old male with left heel ulceration 2/2 pressure Plan: Pt S&E at bedside Plan discussed with attending Dr. Bedoya Chart, labs and vitals reviewed: afebrile, WBC wnl today ESR + CRP elevated (110 & 15) Wound cx (left foot): + S. marcescens (patient on isolation precautions) ID on consult (Dr. Gonzales): c/w IV abx Vascular on consult (Dr. Duval): f/u recommendations LLE MRI: no definitive evidence cortical erosion or destruction of bone. Differentials include early OM vs. reactive bone marrow edema vs. bone contusion 3-phase bone scan ordered LLE--r/o OM Discussed with patient need for further testing as MRI was inconclusive Dressing changed with bactroban, xeroform, DSD, offloading heel boot applied, advised patient to wear at all times while in bed Stable per podiatry Will follow
--- NOTE | 2017-08-27 12:12 | CP.PCM.PN ---
Subjective - Date & Time of Evaluation Date of Evaluation: 08/27/17 Time of Evaluation: 08:00 - Subjective Subjective: events noted wbc trending down iv rx in progress Objective - Vital Signs/Intake and Output Vital Signs (last 24 hours): Temp Pulse Resp BP Pulse Ox 97.8 F 87 20 113/59 L 95 08/27/17 07:00 08/27/17 07:00 08/27/17 07:00 08/27/17 07:00 08/27/17 07:00 Intake and Output: 08/27/17 08/27/17 06:59 18:59 Intake Total 400 Balance 400 - Medications Medications: Current Medications Bacitracin (Bacitracin) 2 gm TOP BID [facility] Last Admin: 08/27/17 10:00 Dose: Not Given Enoxaparin Sodium (Lovenox) 30 mg SC DAILY [facility] Last Admin: 08/27/17 09:28 Dose: 30 mg Epoetin Shane (Procrit) 4,000 [place] [facility] Admin: 08/26/17 16:58 Dose: 4,000 unit Ferrous Sulfate (Feosol) 325 mg PO DAILY [facility] Last Admin: 08/27/17 09:27 Dose: 325 mg Gabapentin (Neurontin) 300 mg PO BID [facility] Last Admin: 08/27/17 09:27 Dose: 300 mg Vancomycin/Sodium Chloride (Vancomycin 1 Gm/Ns 200 Ml) 1 gm in 200 mls @ 133.333 mls/hr [place] [facility] Stop: 08/31/17 09:01 Last Admin: 08/26/17 15:15 Dose: 133.333 mls/hr Gentamicin Sulfate 80 mg/ (Sodium Chloride) 102 mls @ 100 mls/hr [place] [facility] Last Admin: 08/26/17 16:10 Dose: 100 mls/hr Pantoprazole Sodium (Protonix Ec Tab) 40 mg PO DAILY [facility] Last Admin: 08/27/17 09:27 Dose: 40 mg Potassium Chloride (K-Dur 20 Meq Er Tab) 20 meq PO ONCE ONE Stop: 08/28/17 10:05 Tramadol HCl (Ultram) 50 mg PO Q6 [facility] Last Admin: 08/27/17 06:15 Dose: Not Given Vitamin B Complex/Vit C/Folic Acid (Nephro-Venice) 1 tab PO 0800 [facility] Last Admin: 08/27/17 09:28 Dose: 1 tab - Labs Labs: 08/27/17 08:13 08/27/17 08:13 PT 13.6 SECONDS (9.7-12.2) H 08/23/17 12:14 INR 1.2 08/23/17 12:14 APTT 27 SECONDS (21-34) 08/23/17 12:14 - Constitutional Appears: Non-toxic - Head Exam Head Exam: NORMOCEPHALIC - ENT Exam ENT Exam: Mucous Membranes Dry - Neck Exam Neck Exam: absent: Lymphadenopathy - Respiratory Exam Respiratory Exam: Decreased Breath Sounds - Cardiovascular Exam Cardiovascular Exam: REGULAR RHYTHM, +S1, +S2 Assessment and Plan (1) Nonhealing nonsurgical wound Status: Acute (2) Open wound of heel Status: Acute (3) Osteomyelitis Status: Acute
--- NOTE | 2017-08-27 12:27 | CARD ---
APPROVED REPORT EKG Measurement Heart [id number] <Conclusion> Normal sinus rhythm Low voltage QRS Septal infarct, age undetermined Abnormal ECG
--- NOTE | 2017-08-27 13:12 | CP.PCM.PN ---
Subjective - Date & Time of Evaluation Date of Evaluation: 08/27/17 Time of Evaluation: 13:09 - Subjective Subjective: Follow up Nephrology Consultation Note Assessment: Stable Diabetic Left foot infection with cellulitis with MDR Serratia Diabetic chronic Kidney Disease (E11.22) Hypertensive Chronic Kidney Disease (I12.0) End stage renal disease (N18.6) dependence on hemodialysis (Z99.2) (MWF) via AVF Anemia (D64.9), Hyperphosphatemia (E83.39), Secondary Hyperparathyroidism (E21.1 ), HTN (I12.0) Hypokalemia s/p Rt AKA Plan: Will plan for HD tomorrow as ordered. No acute need for dialysis today. Continue with Nephrovite 1 tab/day. PRBC as needed for anemia. On JL as epogen with HD Phos controlled BP control with meds as ordered. Patient not on RAAS marques as BP on low side Glycemic control, Dialysis consistent diet Further work up/management as per primary team Dose meds/antibiotics for ESRD status. Avoid fleets enema/magnesium based laxatives. plan for bone scan 08/27/17 pt on vanco/genta MWF which can be given outpt as well with HD hence can avoid PICC line placement at present. Thanks for allowing me to participate in care of your patient. Will follow patient with you. Please call if any Qs Dr Migue Garnica Office: [phone] Subjective: Noted events overnight. Patients feels okay. Denies chest pain, palpitation, shortness of breath, leg swelling. he is here with left leg infection Physical Examination: General Appearance: Comfortable, in no acute respiratory distress, co- operative. Vitals reviewed and noted as below Lungs: Normal respiratory rate/effort. Breath sounds bilateral equal and clear Heart: Normal rate. s1s2 normal. No rub or gallop. Extremities: no edema. s/p Rt AKA. left leg in dressing. hyperpigmented changes + Neurological: Patient is alert, awake and oriented to person, place and time. No focal deficit. Strength bilateral appropriate and equal Skin: Warm and dry. Normal turgor. No rash. Palpitation: Normal elasticity for age Abdomen: Abdomen is soft. Bowel sounds +. There is no abdominal tenderness, no guarding/rigidity or organomegaly : kidney or bladder not palpable Access: AVF Labs/imaging reviewed. Past medical history, past surgical history, family history, social history, allergy reviewed Objective - Vital Signs/Intake and Output Vital Signs (last 24 hours): Temp Pulse Resp BP Pulse Ox 97.8 F 87 20 113/59 L 95 08/27/17 07:00 08/27/17 07:00 08/27/17 07:00 08/27/17 07:00 08/27/17 07:00 Intake and Output: 08/27/17 08/27/17 06:59 18:59 Intake Total 400 Balance 400 - Medications Medications: Current Medications Bacitracin (Bacitracin) 2 gm TOP BID [facility] Last Admin: 08/27/17 10:00 Dose: Not Given Enoxaparin Sodium (Lovenox) 30 mg SC DAILY [facility] Last Admin: 08/27/17 09:28 Dose: 30 mg Epoetin Shane (Procrit) 4,000 unit IV [facility] [place] [place] Last Admin: 08/26/17 16:58 Dose: 4,000 unit Ferrous Sulfate (Feosol) 325 mg PO DAILY [facility] Last Admin: 08/27/17 09:27 Dose: 325 mg Gabapentin (Neurontin) 300 mg PO BID [facility] Last Admin: 08/27/17 09:27 Dose: 300 mg Vancomycin/Sodium Chloride (Vancomycin 1 Gm/Ns 200 Ml) 1 gm in 200 mls @ 133.333 mls/hr IVPB [facility] [place] [place] Stop: 08/31/17 09:01 Last Admin: 08/26/17 15:15 Dose: 133.333 mls/hr Gentamicin Sulfate 80 mg/ (Sodium Chloride) 102 mls @ 100 mls/hr IVPB [facility] [place] [place] Last Admin: 08/26/17 16:10 Dose: 100 mls/hr Pantoprazole Sodium (Protonix Ec Tab) 40 mg PO DAILY [facility] Last Admin: 08/27/17 09:27 Dose: 40 mg Potassium Chloride (K-Dur 20 Meq Er Tab) 20 meq PO ONCE ONE Stop: 08/28/17 10:05 Tramadol HCl (Ultram) 50 mg PO Q6 [facility] Last Admin: 08/27/17 06:15 Dose: Not Given Vitamin B Complex/Vit C/Folic Acid (Nephro-Venice) 1 tab PO 0800 [facility] Last Admin: 08/27/17 09:28 Dose: 1 tab - Labs Labs: 08/27/17 08:13 08/27/17 08:13 PT 13.6 SECONDS (9.7-12.2) H 08/23/17 12:14 INR 1.2 08/23/17 12:14 APTT 27 SECONDS (21-34) 08/23/17 12:14
[2017-08-27] MEDS ORDERED: Potassium Chloride 20 mEq ER Tab PO ONE (13:54)
[2017-08-27] MEDS ORDERED: Iodixanol 320 mg/ml 150 ml Bottle IV ONE (16:22)
--- NOTE | 2017-08-27 16:45 | NM ---
PROCEDURE: Whole Body Bone Scan HISTORY: L heel ulcer (r/o OM) COMPARISON: 08/25/2017 MRI left foot TECHNIQUE: Following administration of 21.1 miCu of Tc MDP multiplanar whole body images were obtained. FINDINGS: Flow component: Increased flow to the left ankle and proximal foot compatible with cellulitis. No focal abnormalities Blood pool component: Increased accumulation of radionuclide within the soft tissues about the heel/plantar aspect of the foot. Delayed images at 3:00: Retention of radionuclide at 03:00 at at about the os calcis. This is asymmetric compared to the left foot/heel region Other findings: None. IMPRESSION: No evidence of acute osseous process. Right Lower extremity/heel region cellulitis.
--- NOTE | 2017-08-27 17:38 | CP.PCM.CON ---
History of Present Illness - History of Present Illness History of Present Illness: Surgery: Dr. Duval CC: Chronic wound, L heel HPI: 76 year old male with PMHx of DM, and ESRD on hemodialysis M// presents complaining of left heel pain starting 1 month ago that has progressively worsened. The pain is constant and does not radiate. Pain is worse with weight bearing. Pt deneis F/C. Patient was recently seen by podiatry for evaluation of left foot ulcer and was told to come to hospital for further workup. 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 questionable osteo, and elevated ABIs w. good waveform. 12 Pt ROS negative unless specified PMHx: DM, ESRD on hemodialysis // SurgHx: right AKA, AV fistula right upper arm Meds: MAR reviewed Allergies: NKDA FamHx: none SocialHx: lives with ; denies tobacco/alcohol/illicit drug use Past Patient History - Past Medical History & Family History Past Medical History?: Yes - Past Social History Smoking Status: Never Smoked - RENAL Hx Chronic Kidney Disease: Yes - ENDOCRINE/METABOLIC Hx Diabetes Mellitus Type 2: Yes - MUSCULOSKELETAL/RHEUMATOLOGICAL Hx Falls: No - PSYCHIATRIC Hx Substance Use: No - SURGICAL HISTORY Other/Comment: right above knee amputee - ANESTHESIA Hx Anesthesia: Yes Hx Anesthesia Reactions: No Meds Allergies/Adverse Reactions: Allergies Allergy/AdvReac Type Severity Reaction Status Date / Time No Known Allergies Allergy Verified 08/23/17 10:34 - Medications Medications: Current Medications Bacitracin (Bacitracin) 2 gm TOP BID [facility] Last Admin: 08/27/17 10:00 Dose: Not Given Enoxaparin Sodium (Lovenox) 30 mg SC DAILY [facility] Last Admin: 08/27/17 09:28 Dose: 30 mg Epoetin Shane (Procrit) 4,000 unit IV MWF [facility] Last Admin: 08/26/17 16:58 Dose: 4,000 unit Ferrous Sulfate (Feosol) 325 mg PO DAILY [facility] Last Admin: 08/27/17 09:27 Dose: 325 mg Gabapentin (Neurontin) 300 mg PO BID [facility] Last Admin: 08/27/17 09:27 Dose: 300 mg Vancomycin/Sodium Chloride (Vancomycin 1 Gm/Ns 200 Ml) 1 gm in 200 mls @ 133.333 mls/hr [place] [facility] [place]: 08/31/17 09:01 Last Admin: 08/26/17 15:15 Dose: 133.333 mls/hr Gentamicin Sulfate 80 mg/ (Sodium Chloride) 102 mls @ 100 mls/hr IVPB MWF [facility] Last Admin: 08/26/17 16:10 Dose: 100 mls/hr Insulin Aspart (Novolog) 0 unit SC ACHS [facility] PRN Reason: Protocol Insulin Glargine (Lantus) 10 unit SC HS [facility] Pantoprazole Sodium (Protonix Ec Tab) 40 mg PO DAILY [facility] Last Admin: 08/27/17 09:27 Dose: 40 mg Tramadol HCl (Ultram) 50 mg PO Q6 [facility] Last Admin: 08/27/17 14:01 Dose: 50 mg Vitamin B Complex/Vit C/Folic Acid (Nephro-Venice) 1 tab PO 0800 [facility] Last Admin: 08/27/17 09:28 Dose: 1 tab Physical Exam - Constitutional Appears: Non-toxic, No Acute Distress - Head Exam Head Exam: ATRAUMATIC, NORMOCEPHALIC - Eye Exam Eye Exam: EOMI - ENT Exam ENT Exam: Mucous Membranes Moist - Neck Exam Neck exam: Positive for: Full Rom - Respiratory Exam Respiratory Exam: NORMAL BREATHING PATTERN. absent: Accessory Muscle Use, Respiratory Distress - GI/Abdominal Exam GI & Abdominal Exam: Soft. absent: Tenderness - Extremities Exam Additional comments: R AKA LLE: dressing in place over heel, chronic skin changes proximally, no edema - Neurological Exam Neurological exam: Alert, Oriented x3 - Skin Skin Exam: Dry, Warm Results - Vital Signs Recent Vital Signs: Last Vital Signs Temp 97.7 F 08/27/17 15:48 Pulse 98 H 08/27/17 15:48 Resp 20 08/27/17 15:48 BP 105/60 08/27/17 15:48 Pulse Ox 96 08/27/17 15:48 - Labs Result Diagrams: 08/27/17 08:13 08/27/17 08:13 Labs: Laboratory Results - last 24 hr 08/26/17 08/27/17 08/27/17 14:31 08:13 08:13 WBC 6.4 RBC 3.21 L Hgb 9.5 L Hct 28.6 L MCV 89.1 MCH 29.6 MCHC 33.2 RDW 16.2 H Plt Count 197 MPV 9.3 Neut % (Auto) 81.2 H Lymph % (Auto) 6.9 L Meigs % (Auto) 4.7 Eos % (Auto) 7.0 H Baso % (Auto) 0.2 Neut # 5.2 Lymph # 0.4 L Meigs # 0.3 Eos # 0.5 Baso # 0.0 Neutrophils % (Manual) 86 H Lymphocytes % (Manual) 6 L Monocytes % (Manual) 2 Eosinophils % (Manual) 6 H Platelet Estimate Normal Large Platelets Present Hypochromasia (manual) Slight Poikilocytosis (manual Slight Anisocytosis (manual) Slight Microcytosis (manual) Slight Macrocytosis (manual) Slight Ovalocytes Slight Sodium 132 Potassium 3.5 L Chloride 93 L Carbon Dioxide 29 Anion Gap 13 BUN 19 Creatinine 4.1 H Est GFR ( Amer) 17 Est GFR (Non-Af Amer) 14 POC Glucose (mg/dL) Random Glucose 119 H Calcium 7.7 L Phosphorus 3.2 Magnesium 1.9 Total Bilirubin 1.0 AST 26 ALT 19 L Alkaline Phosphatase 71 Total Protein 5.9 L Albumin 3.0 L Globulin 2.9 Albumin/Globulin Ratio 1.0 Hep Bs Antigen Negative 08/27/17 17:05 WBC RBC Hgb Hct MCV MCH MCHC RDW Plt Count MPV Neut % (Auto) Lymph % (Auto) Meigs % (Auto) Eos % (Auto) Baso % (Auto) Neut # Lymph # Meigs # Eos # Baso # Neutrophils % (Manual) Lymphocytes % (Manual) Monocytes % (Manual) Eosinophils % (Manual) Platelet Estimate Large Platelets Hypochromasia (manual) Poikilocytosis (manual Anisocytosis (manual) Microcytosis (manual) Macrocytosis (manual) Ovalocytes Sodium Potassium Chloride Carbon Dioxide Anion Gap BUN Creatinine Est GFR ( Amer) Est GFR (Non-Af Amer) POC Glucose (mg/dL) 427 H* Random Glucose Calcium Phosphorus Magnesium Total Bilirubin AST ALT Alkaline Phosphatase Total Protein Albumin Globulin Albumin/Globulin Ratio Hep Bs Antigen Assessment & Plan - Assessment and Plan (Free Text) Assessment: 76M w. chronic L heel wound -MRI / ABIs / PVR reviewed -will order CTA -further recommendations pending CTA results -d/w attending [place] PGY3
[2017-08-27] MEDS: (Novolog) Insulin Aspart, Recombinant 100 u/ml 10 ml vial SC SCH ×2 (17:55→21:46)
[2017-08-27] MEDS: (Lantus) Insulin Glargine, Recombinant SC SCH (22:11)
[2017-08-28] MEDS: (Novolog) Insulin Aspart, Recombinant 100 u/ml 10 ml vial SC SCH ×3 (07:30→20:47)
[2017-08-28] MEDS: Multivitamin Vitamin B Complex (Nephro-Vite) Tab PO SCH (08:00)
[2017-08-28 09:10] LABS: BASO % 0.5 % (0.0-2.0); EOS # 0.7 K/uL (0.0-0.7); EOS % 10.1 % (0.0-4.0); HEMATOCRIT 31.1 % (35.0-51.0); LYMPH # 1.1 K/uL (1.0-4.3); LYMPH % 16.2 % (20.0-40.0); MEAN CELL VOLUME 89.8 fL (80.0-94.0); MEAN CORPUSCULAR HEMOGLOBIN 29.8 pg (27.0-31.0); MEAN CORPUSCULAR HGB CONC 33.2 g/dL (33.0-37.0); MEAN PLATELET VOLUME 9.1 fL (7.2-11.7); MONO # 0.5 K/uL (0.0-0.8); NRBC % 0.2 % (0.0-2.0); RED CELL DISTRIBUTION WIDTH 16.3 % (11.5-14.5); WHITE BLOOD COUNT 6.7 K/uL (4.8-10.8)
[2017-08-28 09:29] LABS: BILIRUBIN,TOTAL 0.6 mg/dL (0.2-1.3); CALCIUM 8.4 mg/dl (8.6-10.4); POTASSIUM 3.8 mmol/L (3.6-5.2); TOTAL PROTEIN 7.6 g/dL (6.3-8.3)
[2017-08-28 09:38] LABS: ALB/GLOB RATIO 0.8 (1.0-2.1)
--- NOTE | 2017-08-28 09:39 | HP ---
DATE: 08/23/2017 HISTORY OF PRESENT ILLNESS: The patient is a 76-year-old man with congestive heart failure, diabetes, peripheral vascular disease, neurological pains, non-healing wounds in the foot. The patient came to the emergency room and advised admission. The patient had amputation of the left leg. PHYSICAL EXAMINATION GENERAL: The patient is awake, alert, oriented. VITAL SIGNS: Temperature 98, pulse 90. HEENT: Within normal limits. NECK: Supple. CHEST: Symmetrical. HEART: Regular. ABDOMEN: Soft. EXTREMITIES: Amputation ulcer is present in the foot with ankylosis. The patient suffers from diabetic foot ulcer, peripheral vascular disease, failure, hypertension. The patient bedrest, supportive care. Linda White MD
[2017-08-28] MEDS ORDERED: Potassium Chloride 20 mEq ER Tab PO ONE (10:04)
--- NOTE | 2017-08-28 10:56 | CP.PCM.PN ---
Subjective - Date & Time of Evaluation Date of Evaluation: 08/28/17 Time of Evaluation: 10:35 - Subjective Subjective: Podiatry Progress Note- Dr. Bedoya 76 yo male patient seen at bedside today for f/u of left heel ulceration. Pt seen resting comfortably in bed, denies any acute overnight events, reports some improvement to left heel pain today. Seen wearing offloading boot. Denies f /n/v/c/sob/weakness/dizziness. Objective - Vital Signs/Intake and Output Vital Signs (last 24 hours): Temp Pulse Resp BP Pulse Ox 98.1 F 83 20 110/58 L 94 L 08/28/17 07:00 08/28/17 07:00 08/28/17 07:00 08/28/17 07:00 08/28/17 07:00 - Medications Medications: Current Medications Bacitracin (Bacitracin) 2 gm TOP BID [facility] Last Admin: 08/27/17 18:05 Dose: 1 applic Enoxaparin Sodium (Lovenox) 30 mg SC DAILY [facility] Last Admin: 08/27/17 09:28 Dose: 30 mg Epoetin Shane (Procrit) 4,000 unit IV [facility] [place] Last Admin: 08/26/17 16:58 Dose: 4,000 unit Ferrous Sulfate (Feosol) 325 mg PO DAILY [facility] Last Admin: 08/27/17 09:27 Dose: 325 mg Gabapentin (Neurontin) 300 mg PO BID [facility] Last Admin: 08/27/17 17:54 Dose: 300 mg Vancomycin/Sodium Chloride (Vancomycin 1 Gm/Ns 200 Ml) 1 gm in 200 mls @ 133.333 mls/hr IVPB [facility] [place] Stop: 08/31/17 09:01 Last Admin: 08/26/17 15:15 Dose: 133.333 mls/hr Gentamicin Sulfate 80 mg/ (Sodium Chloride) 102 mls @ 100 mls/hr IVPB [facility] [place] Last Admin: 08/26/17 16:10 Dose: 100 mls/hr Insulin Aspart (Novolog) 0 unit SC ACHS [facility] PRN Reason: Protocol Last Admin: 08/27/17 21:46 Dose: Not Given Insulin Glargine (Lantus) 10 unit SC HS [facility] Last Admin: 08/27/17 22:11 Dose: 10 units Pantoprazole Sodium (Protonix Ec Tab) 40 mg PO DAILY [facility] Last Admin: 08/27/17 09:27 Dose: 40 mg Tramadol HCl (Ultram) 50 mg PO Q6 [facility] Last Admin: 08/28/17 00:09 Dose: Not Given Vitamin B Complex/Vit C/Folic Acid (Nephro-Venice) 1 tab PO 0800 [facility] Last Admin: 08/27/17 09:28 Dose: 1 tab - Labs Labs: 08/28/17 08:58 08/28/17 08:58 PT 13.6 SECONDS (9.7-12.2) H 08/23/17 12:14 INR 1.2 08/23/17 12:14 APTT 27 SECONDS (21-34) 08/23/17 12:14 - Constitutional Appears: Non-toxic, No Acute Distress - Extremities Exam Additional comments: Left lower extremity focused exam: Vasc: DP and PT pulses non-palpable. TG wnl, CFT >3 sec to all digits, no pedal edema neuro: grossly diminished derm: superficial ulceration noted to left heel measure approximately 4 cm by 4 cm with a granular base that is thin and directly over bone, no purulence, no drainage, no malodor, no ascending cellulitis or fluctuance ortho: + POP on palpation to posterior heel - Neurological Exam Neurological Exam: Alert, Awake - Psychiatric Exam Psychiatric exam: Normal Affect, Normal Mood Assessment and Plan - Assessment and Plan (Free Text) Assessment: 76 year old male with left heel ulceration 2/2 pressure Plan: Pt S&E at bedside Plan discussed with attending Dr. Bedoya Chart, labs and vitals reviewed: afebrile, WBC wnl today ESR + CRP elevated (110 & 15) Wound cx (left foot): + S. marcescens (patient on isolation precautions) ID on consult (Dr. Gonzales): c/w IV abx gentamycin and vanco Vascular on consult (Dr. Duval): f/u CTA LLE MRI: no definitive evidence cortical erosion or destruction of bone. Differentials include early OM vs. reactive bone marrow edema vs. bone contusion LLE bone scan: negative for OM, cellulitis is noted. Dressing changed with saline, bactroban, xeroform, DSD, offloading heel boot applied, advised patient to wear at all times while in bed Stable per podiatry Will follow while pt is in house.
[2017-08-28] MEDS: Bacitracin Ointment 30 GM TUBE TOP SCH ×2 (11:00→19:53)
--- NOTE | 2017-08-28 11:13 | CP.PCM.PN ---
Subjective - Date & Time of Evaluation Date of Evaluation: 08/28/17 Time of Evaluation: 11:10 - Subjective Subjective: Medicine Progress Note- Dr White's service Patient seen and examined. Patient has no acute complaints. Patient states he slept well overnight and has been eating his meals. Patient is scheduled for HD today. Denies chest pain, shortness of breath, leg pain, and palpitations. Objective - Vital Signs/Intake and Output Vital Signs (last 24 hours): Temp Pulse Resp BP Pulse Ox 98.1 F 83 20 110/58 L 94 L 08/28/17 07:00 08/28/17 07:00 08/28/17 07:00 08/28/17 07:00 08/28/17 07:00 - Medications Medications: Current Medications Bacitracin (Bacitracin) 2 gm TOP BID [facility] Last Admin: 08/27/17 18:05 Dose: 1 applic Enoxaparin Sodium (Lovenox) 30 mg SC DAILY [facility] Last Admin: 08/27/17 09:28 Dose: 30 mg Epoetin Shane (Procrit) 4,000 unit IV [facility] [place] Last Admin: 08/26/17 16:58 Dose: 4,000 unit Ferrous Sulfate (Feosol) 325 mg PO DAILY [facility] Last Admin: 08/27/17 09:27 Dose: 325 mg Gabapentin (Neurontin) 300 mg PO BID [facility] Last Admin: 08/27/17 17:54 Dose: 300 mg Vancomycin/Sodium Chloride (Vancomycin 1 Gm/Ns 200 Ml) 1 gm in 200 mls @ 133.333 mls/hr IVPB [facility] [place] Stop: 08/31/17 09:01 Last Admin: 08/26/17 15:15 Dose: 133.333 mls/hr Gentamicin Sulfate 80 mg/ (Sodium Chloride) 102 mls @ 100 mls/hr IVPB [facility] [place] Last Admin: 08/26/17 16:10 Dose: 100 mls/hr Insulin Aspart (Novolog) 0 unit SC [facility] PRN Reason: Protocol Last Admin: 08/27/17 21:46 Dose: Not Given Insulin Glargine (Lantus) 10 unit SC HS [facility] Last Admin: 08/27/17 22:11 Dose: 10 units Pantoprazole Sodium (Protonix Ec Tab) 40 mg PO DAILY [facility] Last Admin: 08/27/17 09:27 Dose: 40 mg Tramadol HCl (Ultram) 50 mg PO Q6 [facility] Last Admin: 08/28/17 00:09 Dose: Not Given Vitamin B Complex/Vit C/Folic Acid (Nephro-Venice) 1 tab PO 0800 [facility] Last Admin: 08/27/17 09:28 Dose: 1 tab - Labs Labs: 08/28/17 08:58 08/28/17 08:58 PT 13.6 SECONDS (9.7-12.2) H 08/23/17 12:14 INR 1.2 08/23/17 12:14 APTT 27 SECONDS (21-34) 08/23/17 12:14 - Constitutional Appears: Non-toxic, No Acute Distress - Head Exam Head Exam: ATRAUMATIC, NORMOCEPHALIC - Eye Exam Eye Exam: EOMI, Normal appearance - ENT Exam ENT Exam: Mucous Membranes Moist - Respiratory Exam Respiratory Exam: Clear to Ausculation Bilateral, NORMAL BREATHING PATTERN. absent: Accessory Muscle Use, Rhonchi, Wheezes, Respiratory Distress - Cardiovascular Exam Cardiovascular Exam: REGULAR RHYTHM, +S1, +S2, Murmur (systolic ). absent: Irregular Rhythm - GI/Abdominal Exam GI & Abdominal Exam: Soft, Normal Bowel Sounds. absent: Firm, Guarding, Rigid, Tenderness - Extremities Exam Extremities Exam: absent: Normal Inspection, Pedal Edema Additional comments: Right AKA amputation Left foot wrapped in dressing, dry, skin with chronic venous stasis changes, pulses not palpable - Neurological Exam Neurological Exam: Alert, Awake, CN II-XII Intact, Oriented x3 - Psychiatric Exam Psychiatric exam: Normal Affect, Normal Mood - Skin Skin Exam: Dry, Warm Assessment and Plan - Assessment and Plan (Free Text) Assessment: Left foot ulcer and cellulitis -Foot x ray does not definitive show osteomyelitis but does have diffuse soft tissue swelling -MRI foot shows possible early OM vs bone contusion -08/27 bone scan NEGATIVE for OM -Manager Equipment Dr Bedoya consulted, help appreciated -ID Dr Gonzales consulted, help appreciated -Continue 80 mg IV gentamicin MWF (start date 08/26) - patient may be continued on this dose as outpatient for 4 weeks during HD per gardening manager -wound care consult -PT evaluation -blood cultures negative -wound culture shows Serratia M. -ESR elevated at 110 -CRP >15 -tramadol PRN for pain PAD -Consult Dr Duval, help appreciated. Surgery team signed off, no acute intervention at this time. -CTA abdomen ESRD on HD -Nephrology consult Dr. Eva angel appreciated -Continue HD MWF -blood pressure well controlled -avoid nephrotoxic agents Hx of DM -ISS -gabapentin 300 mg PO TID -Accuchecks GI/DVT ppx -protonix -lovenox [address] White
[2017-08-28] MEDS: Enoxaparin 30 mg Syringe SC SCH (11:33)
[2017-08-28] MEDS: Pantoprazole 40 mg EC Tab PO SCH (11:35)
--- NOTE | 2017-08-28 12:28 | CP.PCM.PN ---
Subjective - Date & Time of Evaluation Date of Evaluation: 08/28/17 Time of Evaluation: 12:27 - Subjective Subjective: Follow up Nephrology Consultation Note Assessment: Stable Diabetic Left foot infection with cellulitis with MDR Serratia Diabetic chronic Kidney Disease (E11.22) Hypertensive Chronic Kidney Disease (I12.0) End stage renal disease (N18.6) dependence on hemodialysis (Z99.2) (MWF) via AVF Anemia (D64.9), Hyperphosphatemia (E83.39), Secondary Hyperparathyroidism (E21.1 ), HTN (I12.0) Hypokalemia s/p Rt AKA Plan: Will plan for HD today as ordered. Continue with Nephrovite 1 tab/day. PRBC as needed for anemia. On JL as epogen with HD Phos controlled BP control with meds as ordered. Patient not on RAAS marques as BP on low side Glycemic control, Dialysis consistent diet Further work up/management as per primary team Dose meds/antibiotics for ESRD status. Avoid fleets enema/magnesium based laxatives. bone scan 08/27/17 neg for osteo. vascular surgery evaluating for PVD. pt on vanco/genta MWF which can be given outpt as well with HD hence can avoid PICC line placement at present. Thanks for allowing me to participate in care of your patient. Will follow patient with you. Please call if any Qs. d/w team Dr Migue Garnica Office: [phone] Subjective: Noted events overnight. Patients feels okay. Denies chest pain, palpitation, shortness of breath, leg swelling. he is here with left leg infection Physical Examination: General Appearance: Comfortable, in no acute respiratory distress, co- operative. Vitals reviewed and noted as below Lungs: Normal respiratory rate/effort. Breath sounds bilateral equal and clear Heart: Normal rate. s1s2 normal. No rub or gallop. Extremities: no edema. s/p Rt AKA. left leg in dressing. hyperpigmented changes + Neurological: Patient is alert, awake and oriented to person, place and time. No focal deficit. Strength bilateral appropriate and equal Skin: Warm and dry. Normal turgor. No rash. Palpitation: Normal elasticity for age Abdomen: Abdomen is soft. Bowel sounds +. There is no abdominal tenderness, no guarding/rigidity or organomegaly : kidney or bladder not palpable Access: AVF Labs/imaging reviewed. Past medical history, past surgical history, family history, social history, allergy reviewed Objective - Vital Signs/Intake and Output Vital Signs (last 24 hours): Temp Pulse Resp BP Pulse Ox 98.1 F 83 20 110/58 L 94 L 08/28/17 07:00 08/28/17 07:00 08/28/17 07:00 08/28/17 07:00 08/28/17 07:00 - Medications Medications: Current Medications Bacitracin (Bacitracin) 2 gm TOP BID [facility] Last Admin: 08/28/17 11:00 Dose: Not Given Enoxaparin Sodium (Lovenox) 30 mg SC DAILY [facility] Last Admin: 08/28/17 11:33 Dose: Not Given Epoetin Shane (Procrit) 4,000 unit IV [facility] Last Admin: 08/26/17 16:58 Dose: 4,000 unit Ferrous Sulfate (Feosol) 325 mg PO DAILY [facility] Last Admin: 08/27/17 09:27 Dose: 325 mg Gabapentin (Neurontin) 300 mg PO BID [facility] Last Admin: 08/27/17 17:54 Dose: 300 mg Vancomycin/Sodium Chloride (Vancomycin 1 Gm/Ns 200 Ml) 1 gm in 200 mls @ 133.333 mls/hr IVPB [facility] Stop: 08/31/17 09:01 Last Admin: 08/26/17 15:15 Dose: 133.333 mls/hr Gentamicin Sulfate 80 mg/ (Sodium Chloride) 102 mls @ 100 mls/hr IVPB [facility] Last Admin: 08/26/17 16:10 Dose: 100 mls/hr Insulin Aspart (Novolog) 0 unit SC [facility] PRN Reason: Protocol Last Admin: 08/28/17 07:30 Dose: Not Given Insulin Glargine (Lantus) 10 unit SC HS [facility] Last Admin: 08/27/17 22:11 Dose: 10 units Pantoprazole Sodium (Protonix Ec Tab) 40 mg PO DAILY [facility] Last Admin: 08/28/17 11:35 Dose: Not Given Tramadol HCl (Ultram) 50 mg PO Q6 [facility] Last Admin: 08/28/17 00:09 Dose: Not Given Vitamin B Complex/Vit C/Folic Acid (Nephro-Venice) 1 tab PO 0800 [facility] Last Admin: 08/28/17 08:00 Dose: Not Given - Labs Labs: 08/28/17 08:58 08/28/17 08:58 PT 13.6 SECONDS (9.7-12.2) H 08/23/17 12:14 INR 1.2 08/23/17 12:14 APTT 27 SECONDS (21-34) 08/23/17 12:14
--- NOTE | 2017-08-28 12:34 | CP.PCM.PN ---
Subjective - Date & Time of Evaluation Date of Evaluation: 08/28/17 Time of Evaluation: 09:50 - Subjective Subjective: Vascular Surgery Pt S&E, NAEO. No complaints at this time. Angio completed yesterday, good blood flow. Objective - Vital Signs/Intake and Output Vital Signs (last 24 hours): Temp Pulse Resp BP Pulse Ox 98.1 F 83 20 110/58 L 94 L 08/28/17 07:00 08/28/17 07:00 08/28/17 07:00 08/28/17 07:00 08/28/17 07:00 - Medications Medications: Current Medications Bacitracin (Bacitracin) 2 gm TOP BID [facility] Last Admin: 08/28/17 11:00 Dose: Not Given Enoxaparin Sodium (Lovenox) 30 mg SC DAILY [facility] Last Admin: 08/28/17 11:33 Dose: Not Given Epoetin Shane (Procrit) 4,000 unit IV [facility] Last Admin: 08/26/17 16:58 Dose: 4,000 unit Ferrous Sulfate (Feosol) 325 mg PO DAILY [facility] Last Admin: 08/27/17 09:27 Dose: 325 mg Gabapentin (Neurontin) 300 mg PO BID [facility] Last Admin: 08/27/17 17:54 Dose: 300 mg Vancomycin/Sodium Chloride (Vancomycin 1 Gm/Ns 200 Ml) 1 gm in 200 mls @ 133.333 mls/hr IVPB [facility] Stop: 08/31/17 09:01 Last Admin: 08/26/17 15:15 Dose: 133.333 mls/hr Gentamicin Sulfate 80 mg/ (Sodium Chloride) 102 mls @ 100 mls/hr IVPB [facility] Last Admin: 08/26/17 16:10 Dose: 100 mls/hr Insulin Aspart (Novolog) 0 unit SC ACHS [facility] PRN Reason: Protocol Last Admin: 08/28/17 07:30 Dose: Not Given Insulin Glargine (Lantus) 10 unit SC HS [facility] Last Admin: 08/27/17 22:11 Dose: 10 units Pantoprazole Sodium (Protonix Ec Tab) 40 mg PO DAILY [facility] Last Admin: 08/28/17 11:35 Dose: Not Given Tramadol HCl (Ultram) 50 mg PO Q6 [facility] Last Admin: 08/28/17 00:09 Dose: Not Given Vitamin B Complex/Vit C/Folic Acid (Nephro-Venice) 1 tab PO 0800 [facility] Last Admin: 08/28/17 08:00 Dose: Not Given - Labs Labs: 08/28/17 08:58 08/28/17 08:58 PT 13.6 SECONDS (9.7-12.2) H 08/23/17 12:14 INR 1.2 08/23/17 12:14 APTT 27 SECONDS (21-34) 08/23/17 12:14 - Constitutional Appears: Non-toxic, No Acute Distress - Head Exam Head Exam: ATRAUMATIC, NORMOCEPHALIC - Respiratory Exam Respiratory Exam: NORMAL BREATHING PATTERN. absent: Respiratory Distress - Extremities Exam Extremities Exam: absent: Tenderness Additional comments: Dressing on LLE - Neurological Exam Neurological Exam: Alert, Awake - Psychiatric Exam Psychiatric exam: Normal Affect, Normal Mood - Skin Skin Exam: Dry, Warm Assessment and Plan - Assessment and Plan (Free Text) Assessment: 76M w. chronic L heel wound Plan: CTA reviewed, shows adequate blood flow. No vascular intervention required at this time. Will sign off. D/W Dr. Mukund Rodriguez PGY4
--- NOTE | 2017-08-28 17:29 | CP.PCM.PN ---
Subjective - Date & Time of Evaluation Date of Evaluation: 08/28/17 Time of Evaluation: 08:00 - Subjective Subjective: No complaints at this time. Angio completed yesterday, good blood flow. Objective - Vital Signs/Intake and Output Vital Signs (last 24 hours): Temp Pulse Resp BP Pulse Ox 98 F 87 16 111/58 L 96 08/28/17 16:05 08/28/17 16:05 08/28/17 16:05 08/28/17 16:20 08/28/17 16:05 Intake and Output: 08/28/17 08/28/17 06:59 18:59 Intake Total 500 Balance 500 - Medications Medications: Current Medications Bacitracin (Bacitracin) 2 gm TOP BID [facility] Last Admin: 08/28/17 11:00 Dose: Not Given Enoxaparin Sodium (Lovenox) 30 mg SC DAILY [facility] Last Admin: 08/28/17 11:33 Dose: Not Given Epoetin Shane (Procrit) 4,000 unit IV [facility] [place] Last Admin: 08/26/17 16:58 Dose: 4,000 unit Ferrous Sulfate (Feosol) 325 mg PO DAILY [facility] Last Admin: 08/28/17 11:00 Dose: Not Given Gabapentin (Neurontin) 300 mg PO BID [facility] Last Admin: 08/28/17 11:00 Dose: Not Given Vancomycin/Sodium Chloride (Vancomycin 1 Gm/Ns 200 Ml) 1 gm in 200 mls @ 133.333 mls/hr IVPB [facility] [place] Stop: 08/31/17 09:01 Last Admin: 08/26/17 15:15 Dose: 133.333 mls/hr Gentamicin Sulfate 80 mg/ (Sodium Chloride) 102 mls @ 100 mls/hr IVPB [facility] [place] Last Admin: 08/26/17 16:10 Dose: 100 mls/hr Insulin Aspart (Novolog) 0 unit SC ACHS [facility] PRN Reason: Protocol Last Admin: 08/28/17 07:30 Dose: Not Given Insulin Glargine (Lantus) 10 unit SC HS [facility] Last Admin: 08/27/17 22:11 Dose: 10 units Pantoprazole Sodium (Protonix Ec Tab) 40 mg PO DAILY [facility] Last Admin: 08/28/17 11:35 Dose: Not Given Tramadol HCl (Ultram) 50 mg PO Q6 [facility] Last Admin: 08/28/17 12:00 Dose: Not Given Vitamin B Complex/Vit C/Folic Acid (Nephro-[place]) 1 tab PO 0800 [facility] Last Admin: 08/28/17 08:00 Dose: Not Given - Labs Labs: 08/28/17 08:58 08/28/17 08:58 PT 13.6 SECONDS (9.7-12.2) H 08/23/17 12:14 INR 1.2 08/23/17 12:14 APTT 27 SECONDS (21-34) 08/23/17 12:14 - Constitutional Appears: Non-toxic - Head Exam Head Exam: NORMOCEPHALIC - Eye Exam Eye Exam: absent: Scleral icterus - ENT Exam ENT Exam: Mucous Membranes Dry - Neck Exam Neck Exam: absent: Lymphadenopathy - Respiratory Exam Respiratory Exam: Decreased Breath Sounds - Cardiovascular Exam Cardiovascular Exam: REGULAR RHYTHM - GI/Abdominal Exam GI & Abdominal Exam: Distended, Soft - Rectal Exam Rectal Exam: Deferred Assessment and Plan (1) Nonhealing nonsurgical wound Status: Acute (2) Open wound of heel Status: Acute (3) Osteomyelitis Status: Acute
[2017-08-28] MEDS: Vancomycin 1 gm/NS 200 ml 1 GM/200 ML BAG IVPB SCH (17:53)
[2017-08-28] MEDS: EPOETIN ALFA 4,000 UNIT/ML ML Dialysis IV SCH (19:29)
[2017-08-28] MEDS ORDERED: Influenza Vaccine 60 mcg/0.5 mL SYR (4YR UP) IM ONE (19:56)
[2017-08-28] MEDS: (Lantus) Insulin Glargine, Recombinant SC SCH (22:31)
[2017-08-29 01:48] VITALS: BP 114/62; PULSE 88; RESP 20; TEMP 98; O2SAT 94
--- NOTE | 2017-09-02 12:20 | VASCLAB ---
STUDY DESCRIPTION: HISTORY: Non healing wound left heel PRIORS: None. TECHNIQUE: Pulse volume recording waveforms and segmental pressures of left lower extremities at multiple levels were obtained. Ankle Brachial Indices (ABIs) were calculated. Report prepared by KERVIN Sahu, RVT LEFT LOWER EXTREMITY: * Brachial artery: Pressure - 118 mmHg. * High thigh: Pressure - mmHg: Ratio - : PVR waveform - Pulsatile * Low thigh: Pressure - mmHg: Ratio - PVR waveform: Pulsatile * Calf: Pressure - 220 mmHg: Ratio - NC PVR waveform: Pulsatile * Posterior tibial Artery: Pressure - 220 mmHg: Ratio - NC PVR waveform: Pulsatile * Dorsalis pedis Artery: Pressure - 220 mmHg: Ratio - NC PVR waveform: Pulsatile * Great toe: Pressure - mmHg: Ratio - PVR waveform: Ankle brachial index (STEPHEN): NC OTHER FINDINGS: RIGHT: Above knee amputation. IMPRESSION: Left: The ankle pressure index of the left lower extremity is non-diagnostic due to possible arterial wall calcifications.
--- NOTE | 2017-09-02 12:56 | CT ---
PROCEDURE: CT Angiography Abdomen, Pelvis and Lower Extremity with Contrast HISTORY: Left heel nonhealing wound COMPARISON: None. TECHNIQUE: Technique: CT angiography of the abdomen, pelvis and bilateral lower extremities performed in the arterial phase of enhancement. Coronal and sagittal reformats, and well as rotating MIP images of the vessels generated at the workstation. Intravenous contrast dose: 100 mL Visipaque 320 Radiation dose: Total exam DLP = 2794.9 mGy-cm. This CT exam was performed using one or more of the following dose reduction techniques: Automated exposure control, adjustment of the mA and/or kV according to patient size, and/or use of iterative reconstruction technique. FINDINGS: CT ANGIOGRAPHY: ABDOMINAL AORTA:: Mild scattered calcific and noncalcific atherosclerotic plaque. No aneurysm. MAJOR AORTIC BRANCHES: Celiac [place]: Unremarkable. Superior mesenteric artery: Unremarkable. Inferior mesenteric artery: Unremarkable. Renal arteries: Unremarkable. PELVIC ARTERIES: Right Common Iliac: Unremarkable. Right External Iliac: Unremarkable. Right Internal Iliac: Unremarkable. Left Common Iliac: Unremarkable. Left External Iliac: Unremarkable. Left Internal Iliac: Unremarkable. RIGHT LOWER EXTREMITY ARTERIES: Above-knee amputation. LEFT LOWER EXTREMITY ARTERIES: Left Common Femoral: Unremarkable. Left Superficial Femoral: Unremarkable. Left Profunda Femoris: Unremarkable. Left Popliteal: Unremarkable. Left Anterior Tibial: Heavy calcific plaque, but patent. Left Tibioperoneal Trunk: Heavy calcific plaque, but patent. Left Posterior Tibial: Heavy calcific plaque, difficult to evaluate. Left Peroneal: Heavy calcific plaque, difficult to evaluate. Left Dorsalis Pedis: Heavy calcific plaque, but patent. NON-ANGIOGRAPHIC ASPECT OF THE EXAM: LOWER THORAX: Small left pleural effusion. Large hiatal hernia. LIVER: Unremarkable. No gross lesion or ductal dilatation. GALLBLADDER AND BILE DUCTS: Cholelithiasis without gallbladder wall thickening or pericholecystic fluid. PANCREAS: Large ductal calculi causing ductal dilatation up to 0.9 centimeter. SPLEEN: Scattered punctate too small to characterize hypodensities. ADRENALS: Unremarkable. No mass. KIDNEYS AND URETERS: Atrophic. No hydronephrosis. No solid mass. STOMACH AND BOWEL: Large hiatal hernia. No obstruction. Nonspecific lobulated rectal thickening. Colonic diverticulosis without diverticulitis. APPENDIX: Normal appendix. PERITONEUM: Unremarkable. No free fluid. No free air. LYMPH NODES: Unremarkable. No enlarged lymph nodes. BLADDER: Unremarkable. REPRODUCTIVE: Unremarkable. BONES: Spinal degenerative changes. OTHER FINDINGS: Right above-knee amputation. IMPRESSION: Right-sided above-knee amputation. Left lower extremity: Heavy calcific plaque in the below knee arteries making evaluation difficult. Three-vessel runoff to the foot. Nonspecific lobulated rectal thickening. Direct visualization and/or contrast-enhanced rectal MRI are recommended for further evaluation. Small pleural effusion. Large hiatal hernia. Pancreatic ductal calculi causing the dilatation. No peripancreatic inflammatory change.
--- NOTE | 2017-09-03 05:51 | DS ---
The patient ____ hypertension, diabetes with chief complaint of generalized weakness, fatigue, tiredness. The patient had bilateral foot ulcers. Patient started on IV antibiotics, business resiliency manager and vascular consult, showed improvement. The patient transferred to rehab for IV antibiotics. Linda White MD
== END 2017-08-29 04:00 | disposition home or self-care (01) | DRG 638 ==
LOC: C.ER 10:24 → C.9E 12:58 → C.3T 13:17 → C.5S 08-26 14:34
PROVIDERS: ADMIT Internal Medicine Pulmonary Disease; ATTEND Internal Medicine Pulmonary Disease
PROC: 5A1D70Z Performance of Urinary Filtration, Intermittent, Less than 6 Hours Per Day (ICD-10-PCS; principal; 2017-08-26)
DX: E11.621 Type 2 diabetes mellitus with foot ulcer (principal); M86.172 Other acute osteomyelitis, left ankle and foot; E11.22 Type 2 diabetes mellitus with diabetic chronic kidney disease; I12.0 Hypertensive chronic kidney disease with stage 5 chronic kidney disease or end stage renal disease; N18.6 End stage renal disease; L03.116 Cellulitis of left lower limb; L97.429 Non-pressure chronic ulcer of left heel and midfoot with unspecified severity; E11.69 Type 2 diabetes mellitus with other specified complication; E87.6 Hypokalemia; E11.628 Type 2 diabetes mellitus with other skin complications; N25.81 Secondary hyperparathyroidism of renal origin; T81.89XA Other complications of procedures, not elsewhere classified, initial encounter; Y83.5 Amputation of limb(s) as the cause of abnormal reaction of the patient, or of later complication, without mention of misadventure at the time of the procedure; Z89.611 Acquired absence of right leg above knee; Z99.2 Dependence on renal dialysis; Z79.4 Long term (current) use of insulin